=== PATIENT | female | born 1935 | race Caucasian/White ===

== ENCOUNTER 2019-05-31 00:59 | Inpatient (IN) | payer MEDICARE, OTHER ==
[2019-05-31] VITALS (9 sets, daily range): BP systolic 123–169; BP diastolic 58–78
[~2019-05-31] VITALS: Ht 152.4 cm; Wt 96.2 kg
[~2019-05-31 00:59] MED LIST: ALBU8.5H4 IH; FLUT1DIS3 IH; GLYB5TAB7 PO; IPRA0.2S18 IH; WARF1TAB86 PO
--- NOTE | 2019-05-31 01:05 | NUR ---
PT KIA FROM HOME S/P GLF. PT STATES HER LEGS FELT WEAK AND SHE FELL. L FOREHEAD REDNESS NOTED. PT AOX3. NAD NOTED. PT C/O SOB. DENIES PAIN AT THIS TIME. PT ON MONITOR IN BED 12 WITH FAMILY AT BEDSIDE. WILL CONTINUE TO MONITOR.
--- NOTE | 2019-05-31 01:17 | NUR ---
PHLEB AT BEDSIDE FOR BLOOD DRAW
--- NOTE | 2019-05-31 01:18 | NUR ---
TECH AT BEDSIDE FOR EKG
[2019-05-31 01:43] LABS: BASOPHILS # (AUTO) 0.1 /CMM (0.0-0.2); BASOPHILS % (AUTO) 0.7 % (0.0-2.0); EOSINOPHILS % (AUTO) 5.3 % (0.0-6.0); HEMATOCRIT 24 % (33-45); HEMOGLOBIN 7.6 g/dL (11.5-14.8); LYMPHOCYTES # (AUTO) 1.4 /CMM (0.8-4.8); LYMPHOCYTES % (AUTO) 17.6 % (20.0-44.0); MEAN CORPUSCULAR HGB CONC 32 g/dl (31.0-36.0); MEAN CORPUSCULAR VOLUME 75 fL (82-100); MONOCYTES # (AUTO) 0.6 /CMM (0.1-1.30); NEUTROPHILS # (AUTO) 5.7 /CMM (1.8-8.9); NEUTROPHILS % (AUTO) 69.4 % (43.0-81.0); PLATELET COUNT (AUTO) 440 /CMM (150-450); RED BLOOD CELL COUNT(AUTO) 3.15 MIL/uL (4.0-5.2); WHITE BLOOD COUNT (AUTO) 8.2 K/uL (4.3-11.0)
[2019-05-31 01:44] LABS: CARBON DIOXIDE 28 mmol/L (21-32); CHLORIDE 103 mmol/L (98-107); CREATININE 1.7 mg/dL (0.6-1.3); GLUCOSE 191 mg/dL (74-106); POTASSIUM 4.2 mmol/L (3.5-5.1); SODIUM SERUM 137 mmol/L (136-145); UREA NITROGEN, BLOOD 31 mg/dL (7-18)
--- NOTE | 2019-05-31 01:46 | NUR ---
PT TAKEN TO RADIOLOGY VIA [facility]
--- NOTE | 2019-05-31 02:57 | NUR ---
PT RESTING IN BED WITH FAMILY AT BEDSIDE. PT DENIES PAIN AT THIS TIME. WILL CONTINUE TO MONITOR.
--- NOTE | 2019-05-31 03:06 | NUR ---
BED 309-2
[2019-05-31] MEDS ORDERED: ALBUTEROL FS 2.5 MG/0.5 ML VIAL.NEB ONE (03:07)
--- NOTE | 2019-05-31 03:07 | NUR ---
RT AT BEDSIDE FOR BREATHING TREATMENT
[2019-05-31] MEDS ORDERED: ALBUTEROL FS 2.5 MG/0.5 ML VIAL.NEB NEB ONE (03:30)
--- NOTE | 2019-05-31 03:39 | NUR ---
REPORT GIVEN TO YANIV GLORIA FOR PENNIE
--- NOTE | 2019-05-31 03:40 | NUR ---
ADMISSION NOTES: RECEIVED REPORT FROM HOLDEN PURVIS. PT BROUGHT TO THE UNIT VIA GURNEY. MET WITH PT'S DAUGHTER AT BED SIDE. PT IS A/O X3 ON 1L OXYGEN FOR COMFORT. PT DENIES ANY PAIN OR DISCOMFORT AT THIS TIME. PLEASANT LADY, BURKINAN SPEAKING ONLY, DAUGHTER TO STAY AT BED SIDE HELPED WITH TRANSLATION. PT S/P TRIP AND FALL AT HOME, SKIN ASSESSMENT PERFORMED, PLEASE SEE SKIN LOG. BED BATH PROVIDED TO PT AT THIS TIME. LEXUS WELCHANDA COMPLETED INVENTORY OF BELONGINGS. PER DAUGHTER, HER MOTHER ISN'T WEARING DENTURES AT THE MOMENT THEY FORGET IT AT HOME. SHE ALSO ADDED THAT PT TAKING LASIX 40MG DAILY AT HOME. PT BLE NOTED TO BE SWELLING, ELEVATED ON PILLOWS. PT AND FAMILY WANTS FULL CODE. ORIENTED PT TO USE OF CALL LIGHT AND HOURLY ROUNDING. SAFETY PRECAUTIONS FOR FALL INITIATED, CALL LIGHT IN REACH, PT'S DAUGHTER WILL STAY WITH THE PT TODAY. ON TELE MONITORING SINUS RHYTHM HR 64. WILL CONTINUE MONITORING PT.
--- NOTE | 2019-05-31 04:15 | NUR ---
RN NOTES: NOTIFIED MD UX INTERACTION DESIGNER REGARDING ADMISSION ORDERS
[2019-05-31] MEDS ORDERED: FURO-144 PO (04:23)
--- NOTE | 2019-05-31 04:59 | NUR ---
RN NOTES: PER PT'S DAUGHTER, GADIEL, SHE FORGOT THE NAME OF THE INSULIN, UNSURE IF ITS JANUVIA OR TRADJENTA, STATED SHE WILL BRING IT IN AM.
--- NOTE | 2019-05-31 05:00 | NUR ---
RN NOTES: PLACED ANOTHER CALL TO STEREOPLOTTER OPERATOR MD, FOR ADMITTING ORDERS, AWAITING CALL BACK
--- NOTE | 2019-05-31 05:53 | NUR ---
RN NOTES: RECEIVED CALL BACK FROM DR MCCOY, INFORMED ABOUT PT NEEDS ADMITTING ORDERS, INFORMED PT ON TELE 315-1, INFORMED ABOUT PT'S NAME, NOTIFIED OF VS AND ALL HOME MEDS PLACED IN COMPUTER, INFORMED ABOUT INSULIN BUT PT'S DAUGHTER UNSURE OF NAME, BUT WILL BRING TODAY THE SAID MEDICATION, INFORMED ACCORDING TO PT'S DAUGHTER, THERE'S NO SPECIFIC UNIT OF LONG ACTING INSULIN THAT SHE GAVE HER MOTHER, SHE CLAIMED IT DEPENDS WHETHER THE BLOOD SUGAR IS HIGH, LOW OR NORMAL.
--- NOTE | 2019-05-31 05:54 | NUR ---
RN NOTES: PER MD HE WILL PUT IN ORDERS
--- NOTE | 2019-05-31 06:53 | NUR ---
RN NOTES: CONTACTED MD METALLIC YARN SLITTING MACHINE OPERATOR, REGARDING ADMITTING ORDERS, AND PT NEEDING BREATHING TREATMENT, PER MD T/O VENTOLIN 2.5/0.5 NEB Q6HRS PRN FOR SOB/ASTHMA. ORDER READ BACK, VERIFIED, CONTACTED RT SPOKED WITH MABEL, INFORMED ABOUT NEW ORDER, STATED THEY ARE RECEIVING REPORT RIGHT NOW./CHANGE OF SHIFT.
[2019-05-31] MEDS ORDERED: ONDANSETRON HCL/PF 4 MG/2 ML VIAL IVP PRN (07:00)
[2019-05-31] MEDS ORDERED: DEXTROSE 50%-WATER 50 ML DISP.SYRIN IV PRN (07:00)
[2019-05-31] MEDS ORDERED: HYDROCODONE/APAP 5/325MG 1 EACH TABLET PO PRN (07:00)
[2019-05-31] MEDS ORDERED: ALBUTEROL SULFATE INH 18 GM HFA.AER.AD IH SCH (07:00)
[2019-05-31] MEDS ORDERED: MAG HYDROX/AL HYDROX/SIMETH 30 ML UDC PO PRN (07:00)
[2019-05-31] MEDS ORDERED: Z GUARD REMEDY 2 OZ OINT TP PRN (07:00)
[2019-05-31] MEDS ORDERED: ZOLPIDEM TARTRATE 5 MG TABLET PO PRN (07:00)
[2019-05-31] MEDS ORDERED: MAGNESIUM HYDROXIDE 30 ML UDC PO PRN (07:00)
--- NOTE | 2019-05-31 07:37 | NUR ---
RN NOTES: RT IN THE UNIT TO GIVE BREATHING TREATMENT. IV ACCESS REMAINS PATENT AND FLUSHING WELL, ON HL. VS REMAINS STABLE, REMAINS ON SINUS RHYTHM HR 65. SAFETY PRECAUTIONS FOR FALL REMAINS ENGAGED, CALL LIGHT IN REACH, WILL ENDORSE TO DAY RN FOR PENNIE.
[2019-05-31] MEDS: ALBUTEROL FS 2.5 MG/0.5 ML VIAL.NEB NEB PRN (07:54)
[2019-05-31] MEDS: IPRATROPIUM NEB FS 0.5 MG/2.5 ML AMPUL.NEB IH PRN (07:54)
[2019-05-31] MEDS: BLOOD SUGAR DIAGNOSTIC 1 EACH STRIP IN SCH ×4 (07:56→21:01)
--- NOTE | 2019-05-31 08:01 | NUR ---
RN OPENING NOTES PT AWAKE AND SITTING IN CHAIR AT SIDE OF BED. DAUGHTER GADIEL AT BEDSIDE. NO COMPLAINTS OF PAIN, OR DISTRESS AT THIS TIME. PT TELE MONITORED NSR. PT ON 2L NASAL CANNULA SATING WELL. PT HAS A LEFT AC #20 INTACT AND PATENT. SAFETY PRECAUTIONS IN PLACE, BED IN LOWEST LOCKED POSITION, X2 SIDE RAILS UP AND CALL LIGHT WITHIN REACH. WILL CONTINUE TO MONITOR.
[2019-05-31] MEDS: INSULIN REGULAR, HUMAN 100 UNIT/ML 3 ML VIAL SQ PRN ×3 (08:43→21:03)
[2019-05-31] MEDS: FLUTICASONE/VILANTEROL 1 EACH BLST.W.DEV IH SCH (08:44)
[2019-05-31] MEDS: glyBURIDE 5 MG TABLET PO SCH (08:44)
[2019-05-31 10:56] LABS: IRON, SERUM 18 ug/dl (50-175); TOTAL IRON BINDING CAPACITY 284 ug/dl (250-450)
[2019-05-31] MEDS: IV NS 0.9% 1,000 ML IV PRN (15:18)
--- NOTE | 2019-05-31 18:03 | NUR ---
RN CLOSING NOTES PT AWAKE AND SITTING IN CHAIR AT SIDE OF BED. FAMILY AT BEDSIDE. NO COMPLAINTS OF PAIN, OR DISTRESS AT THIS TIME. PT ON 2L NASAL CANNULA FOR COMFORT, SATING WELL. PT HAS A LEFT HAND #24 INTACT AND PATENT AND RUNNING NS @75ML/HR. SAFETY PRECAUTIONS IN PLACE, BED IN LOWEST LOCKED POSITION, X2 SIDE RAILS UP AND CALL LIGHT WITHIN REACH. WILL ENDORSE TO CUSTOMER SERVICE SECURITY OFFICER NURSE FOR CONTINUITY OF CARE.
--- NOTE | 2019-05-31 19:30 | NUR ---
RN INITIAL NOTES: RECEIVED REPORT FROM YANIV MADSEN. PT SITTING ON A CHAIR, DAUGHTER AT BED SIDE. PT A/O X3 ON 1L OXYGEN FOR COMFORT. DENIES ANY PAIN OR DISCOMFORT AT THIS TIME. IV ACCESS PATENT AND FLUSHING WELL, INFUSING WITH NS AT 75ML/HR. DISCUSSED GRAF OF CARE. SAFETY PRECAUTIONS FOR FALL INITIATED, CALL LIGHT IN REACH, WILL CONTINUE MONITORING PT.
--- NOTE | 2019-05-31 19:50 | NUR ---
RN NOTES: CHRISTIANE SEN MET WITH PT AND DAUGHTER, DISCUSSED PLAN OF CARE
--- NOTE | 2019-05-31 20:03 | NUR ---
RN NOTES: PER CALL CENTER ASSISTANT CHRISTIANE TO START PT ON CARAFATE 1G TID TO START TONIGHT
--- NOTE | 2019-05-31 20:10 | NUR ---
RN NOTES: ORDER FOR PROTONIX FAXED TO RN INTERCELL CONNECTOR PLACER ANA
[2019-05-31] MEDS: SUCRALFATE 1 G TABLET PO SCH (20:39)
--- NOTE | 2019-05-31 21:03 | NUR ---
ACCU CHECK 199: BLOOD SUGAR 199, 3UNITS OF INSULIN GIVEN PER SLIDING SCALE
--- NOTE | 2019-05-31 21:50 | NUR ---
rn notes: followed up with rn sup regarding medication, protonix, per rn sup she still checking and will bring meds in a few.
[2019-05-31] MEDS ORDERED: PANTOPRAZOLE 40 MG VIAL ONE (22:07)
[2019-05-31] MEDS: PANTOPRAZOLE 40 MG VIAL IV SCH (22:18)
--- NOTE | 2019-05-31 22:21 | NUR ---
late admin of pprotonix iv: david duff just delivered the medication, protonix iv reconstituted with 10ml of 0.9% sodium chloride, and will admin ivp over 2mins
--- NOTE | 2019-05-31 22:40 | NUR ---
rn notes: paged insulation inspector md regarding pt's orthostatic bp, awaiting call back
--- NOTE | 2019-05-31 22:42 | NUR ---
rn notes: received call back from dr marshall, relayed about result of orthostatic bp supine 169/59 hr 69, sitting 167/72 hr 71, standing 160/67 hr 78, pt denies any pain or discomfort, denies any head ache or dizziness, asymptomatic. no new orders received from md. will continue to monitor pt.
[2019-06-01] VITALS: BP 155/68
[2019-06-01 00:15] VITALS: BP 156/59
--- NOTE | 2019-06-01 06:05 | NUR ---
rn notes: draw blood from [facility] midline, however too little for the ptt, accdg to men's leather dress belt maker they need at least 2-4ml. one we viridiana only 2ml, per men's leather dress belt maker they will still try to run test for the aptt. Addendum: 06/01/19 at 0644 by KYLAH GONZALEZ RN disregard above documentation, wrong entry
[2019-06-01] MEDS: BLOOD SUGAR DIAGNOSTIC 1 EACH STRIP IN SCH ×4 (06:34→21:26)
--- NOTE | 2019-06-01 06:34 | NUR ---
accu check 94: blood sugar 94, no insulin coverage given per sliding scale.
--- NOTE | 2019-06-01 06:45 | NUR ---
rn closing notes: pt in bed, remains with 1L oxygen for comfort. denies any pain or discomfort at this time. iv access remains patent and flushing well, infusing with ivf as ordered. instructed pt and daughter we need to collect stool for ob. understand and agree. vs remains stable, needs attended. safety precautions for fall remains engaged, call light in reach, will endorse to day rn for dilcia.
[2019-06-01 07:17] LABS: BASOPHILS % (AUTO) 0.6 % (0.0-2.0); EOSINOPHILS % (AUTO) 4.6 % (0.0-6.0); HEMATOCRIT 25 % (33-45); HEMOGLOBIN 7.8 g/dL (11.5-14.8); LYMPHOCYTES # (AUTO) 1.3 /CMM (0.8-4.8); LYMPHOCYTES % (AUTO) 18.3 % (20.0-44.0); MEAN CORPUSCULAR HGB CONC 31 g/dl (31.0-36.0); MEAN CORPUSCULAR VOLUME 75 fL (82-100); MONOCYTES # (AUTO) 0.6 /CMM (0.1-1.30); MONOCYTES % (AUTO) 8.1 % (2.0-12.0); NEUTROPHILS # (AUTO) 4.8 /CMM (1.8-8.9); NEUTROPHILS % (AUTO) 68.4 % (43.0-81.0); PLATELET COUNT (AUTO) 428 /CMM (150-450); RED BLOOD CELL COUNT(AUTO) 3.33 MIL/uL (4.0-5.2); WHITE BLOOD COUNT (AUTO) 7.1 K/uL (4.3-11.0)
--- NOTE | 2019-06-01 07:30 | NUR ---
RN OPENING NOTES PT AWAKE AND RESTING IN BED. DAUGHTER AT BEDSIDE. NO APPARENT S/S OF PAIN, DISTRESS OR SOB AT THIS TIME. PT ON 1L 02 FOR COMFORT. PT HAS LEFT HAND #24 IV INTACT AND RUNNING NS @75ML/HR. SAFETY PRECAUTIONS IN PLACE, BED IN LOWEST LOCKED POSITION, X2 SIDE RAILS UP AND CALL LIGHT WITHIN REACH. WILL CONTINUE TO MONITOR.
[2019-06-01 07:39] LABS: CALCIUM, SERUM 9.1 mg/dL (8.5-10.1); CARBON DIOXIDE 24 mmol/L (21-32); CHLORIDE 105 mmol/L (98-107); CREATININE 1.5 mg/dL (0.6-1.3); GLUCOSE 95 mg/dL (74-106); PHOSPHORUS 3.9 mg/dL (2.5-4.9); SODIUM SERUM 139 mmol/L (136-145); UREA NITROGEN, BLOOD 26 mg/dL (7-18)
[2019-06-01 07:44] LABS: CHOLESTEROL 150 mg/dL (<200); HDL CHOLESTEROL 44 mg/dL (40-60); LDL 82 mg/dL (0-99); THYROID STIMULATING HORMONE 1.661 uIU/mL (0.358-3.74); TRIGLYCERIDES 149 mg/dL (30-150)
[2019-06-01] MEDS ORDERED: METO25TA6 PO (07:51)
--- NOTE | 2019-06-01 07:51 | NUR ---
RN NOTES PATIENT'S DAUGHTER STATED THAT SHE TAKES BLOOD PRESSURE MEDICATION AT HOME. METOPROLOL 25MG TWICE AT DAY. WILL INPUT INTO PATIENT MED RECON AND INFORM HOSPITALIST.
[2019-06-01 08:00] VITALS: BP 162/65
--- NOTE | 2019-06-01 08:16 | NUR ---
RN NOTES PT LEFT UNIT FOR CTCA ACCOMPANIED BY LEXUS NOGUEIRA. Addendum: 06/01/19 at 1453 by TENA ALLEN RN wrong patient.
[2019-06-01] MEDS: FLUTICASONE/VILANTEROL 1 EACH BLST.W.DEV IH SCH (08:56)
[2019-06-01] MEDS: glyBURIDE 5 MG TABLET PO SCH (08:56)
[2019-06-01] MEDS: SUCRALFATE 1 G TABLET PO SCH ×3 (08:56→16:44)
[2019-06-01] MEDS: IV NS 0.9% 1,000 ML IV PRN (12:05)
[2019-06-01] MEDS: INSULIN REGULAR, HUMAN 100 UNIT/ML 3 ML VIAL SQ PRN ×3 (12:06→21:41)
[2019-06-01] MEDS ORDERED: hydrALAZINE HCL 25 MG TABLET PO PRN (14:00)
[2019-06-01] MEDS: AMLODIPINE BESYLATE 5 MG TABLET PO SCH (14:46)
[2019-06-01] MEDS: SOD FERRIC GLUC 125 MG in IV NS 0.9% 100 ML IV SCH (14:55)
[2019-06-01 16:00] VITALS: BP 141/58
--- NOTE | 2019-06-01 18:46 | NUR ---
RN CLOSING NOTES PT AWAKE AND RESTING IN CHAIR AT SIDE OF BED. DAUGHTER AT BEDSIDE. NO APPARENT S/S OF PAIN, DISTRESS OR SOB DURING SHIFT. PT HAS RIGHT WRIST #22 IV INTACT AND PATENT. SAFETY PRECAUTIONS IN PLACE, BED IN LOWEST LOCKED POSITION, X2 SIDE RAILS UP AND CALL LIGHT WITHIN REACH. WILL ENDORSE TO DRUM TESTER NURSE FOR CONTINUITY OF CARE.
--- NOTE | 2019-06-01 19:30 | NUR ---
MS/RN OPENING NOTES PT RECEIVED SITTING IN THE CHAIR WITH DAUGHTER AT BEDSIDE. PT IS OMANI SPEAKING, AAOX3. ON ROOM AIR, BREATHING EVEN AND UNLABORED. DENIES SOB AND PAIN AT THIS TIME. IV TO LFA PATENT AND INTACT. CHRISTIANE HODGE AT BEDSIDE TO EVALUATE THE PT. NO NEEDS EXPRESSED AT THIS TIME. PT AND FAMILY AWARE OF CT ABD/PELVIS WO CONTRAST AND NEED TO COLLECT STOOL SAMPLE. BED IN LOW/LOCKED POSITION WITH CALL LIGHT IN REACH. SIDE RAILS UPX2. WILL CONTINUE TO MONITOR
[2019-06-01 20:00] VITALS: BP_SYST 138; BP_SYST 139; BP_SYST 144; BP_DIAS 51; BP_DIAS 60; BP_DIAS 61
[2019-06-01] MEDS: METOPROLOL TARTRATE 25 MG TABLET PO SCH (21:26)
[2019-06-01] MEDS: PANTOPRAZOLE 40 MG VIAL IV SCH (21:26)
[2019-06-02] MEDS: ALBUTEROL FS 2.5 MG/0.5 ML VIAL.NEB NEB PRN ×2 (03:36→21:29)
[2019-06-02] MEDS: BLOOD SUGAR DIAGNOSTIC 1 EACH STRIP IN SCH ×4 (06:44→21:36)
[2019-06-02] MEDS: INSULIN REGULAR, HUMAN 100 UNIT/ML 3 ML VIAL SQ PRN ×3 (06:50→21:46)
--- NOTE | 2019-06-02 06:53 | NUR ---
MS/RN NOTES BGL 161, ADMINISTERED INSULIN PER SLIDING SCALE. CALLED RADIOLOGY FOR ESTIMATED BOOM TENDER TIME FOR CT ABD/PELVIS WO CONTRAST. ETA [phone] PT AND FAMILY MADE AWARE.
[2019-06-02 06:56] LABS: BASOPHILS % (AUTO) 0.5 % (0.0-2.0); EOSINOPHILS % (AUTO) 2.3 % (0.0-6.0); HEMATOCRIT 24 % (33-45); HEMOGLOBIN 7.6 g/dL (11.5-14.8); LYMPHOCYTES # (AUTO) 1.3 /CMM (0.8-4.8); LYMPHOCYTES % (AUTO) 14.9 % (20.0-44.0); MEAN CORPUSCULAR HGB CONC 32 g/dl (31.0-36.0); MEAN CORPUSCULAR VOLUME 75 fL (82-100); MONOCYTES # (AUTO) 0.8 /CMM (0.1-1.30); MONOCYTES % (AUTO) 8.7 % (2.0-12.0); NEUTROPHILS # (AUTO) 6.4 /CMM (1.8-8.9); NEUTROPHILS % (AUTO) 73.6 % (43.0-81.0); PLATELET COUNT (AUTO) 426 /CMM (150-450); RED BLOOD CELL COUNT(AUTO) 3.18 MIL/uL (4.0-5.2); WHITE BLOOD COUNT (AUTO) 8.7 K/uL (4.3-11.0)
[2019-06-02 07:08] LABS: ALANINE AMINOTRANSFERASE 13 U/L (12-78); ALBUMIN 2.8 g/dL (3.4-5.0); ALKALINE PHOSPHATASE 57 U/L (46-116); ASPARTATE AMINOTRANSFERASE 12 U/L (15-37); BILIRUBIN,TOTAL 0.2 mg/dL (0.2-1.0); CALCIUM, SERUM 8.6 mg/dL (8.5-10.1); CARBON DIOXIDE 23 mmol/L (21-32); CHLORIDE 102 mmol/L (98-107); CREATININE 1.7 mg/dL (0.6-1.3); GLUCOSE 157 mg/dL (74-106); MAGNESIUM 1.9 mg/dL (1.8-2.4); POTASSIUM 4.3 mmol/L (3.5-5.1); SODIUM SERUM 137 mmol/L (136-145); TOTAL PROTEIN, SERUM 7.2 g/dL (6.4-8.2); UREA NITROGEN, BLOOD 24 mg/dL (7-18)
[2019-06-02 07:19] LABS: CREATINE KINASE, TOTAL 175 U/L (26-192)
--- NOTE | 2019-06-02 07:30 | NUR ---
MS/RN CLOSING NOTES PT AWAKE, DAUGHTER REMAINS AT BEDSIDE. SITTING IN THE CHAIR. ON 2LPM O2 VIA NC FOR COMFORT, NO SOB OR PAIN NOTED. IN NO ACUTE RESPIRATORY DISTRESS. IV TO LEFT WRIST PATENT AND INTACT. NO SIGNIFICANT CHANGES OVERNIGHT. ALL NEEDS MET AND ANTICIPATED. STILL NEED URINE AND STOOL SPECIMEN SAMPLE. AWAITING RADIOLOGY CURTAIN ROLLER ASSEMBLER FOR CT ABD/PELVIS WO CONTRAST, ETA [phone]. BED IN LOW/LOCKED POSITION WITH CALL LIGHT IN REACH. SIDE RAILS UPX2. ENDORSED TO DAY SHIFT RN PENNIE.
[2019-06-02 08:00] VITALS: BP 112/72
--- NOTE | 2019-06-02 08:10 | NUR ---
RN OPENING NOTES PT AWAKE AND RESTING IN BED. DAUGHTER AT BEDSIDE. NO COMPLAINTS OF PAIN, DISTRESS OR SOB AT THIS TIME. PT HAS RIGHT WRIST #20 IV INTACT AND PATENT. SAFETY PRECAUTIONS IN PLACE, BED IN LOWEST LOCKED POSITION, X2 SIDE RAILS UP AND CALL LIGHT WITHIN REACH. WILL CONTINUE TO MONITOR.
[2019-06-02] MEDS: SUCRALFATE 1 G TABLET PO SCH ×3 (08:42→16:43)
[2019-06-02] MEDS: FLUTICASONE/VILANTEROL 1 EACH BLST.W.DEV IH SCH (08:43)
[2019-06-02] MEDS: METOPROLOL TARTRATE 25 MG TABLET PO SCH ×2 (08:43→21:37)
[2019-06-02] MEDS: AMLODIPINE BESYLATE 5 MG TABLET PO SCH (08:43)
[2019-06-02] MEDS: glyBURIDE 5 MG TABLET PO SCH (08:43)
[2019-06-02] MEDS ORDERED: PEG 3350/NA SULF,BICARB,CL/KCL 4,000 ML BOTTLE PO ONE (10:00)
--- NOTE | 2019-06-02 10:35 | NUR ---
WOUND CARE CONSULT: PT PRESENTS WITH INCONTINENCE AND RASHES/REDNESS TO SKIN FOLDS, PRESENT ON ADMISSION. RECOMMENDATIONS MADE FOR SKIN CARE AND PROTECTION. DISCUSSED WITH NURSING STAFF. WILL SEE PRN. PELLETIER IN AGREEMENT WITH PLAN OF CARE. Addendum: 06/02/19 at 1036 by LUKASZ GARCIA WNDNU Amended: Links added.
--- NOTE | 2019-06-02 11:14 | NUR ---
rn notes per dr whittington, pt does not need to be NPO at this time. Continue to give golytely as ordered.
[2019-06-02 12:19] LABS: CREATININE, URINE 60.6 MG/DL (30.0-125.0); URINE TOTAL PROTEIN 30.4 mg/dL (0-11.9)
[2019-06-02 12:23] LABS: APPEARANCE,URINE CLOUDY (CLEAR); BILIRUBIN,URINE NEGATIVE (NEGATIVE); BLOOD, URINE NEGATIVE Ery/uL (NEGATIVE); KETONES,URINE NEGATIVE (NEGATIVE); LEUKOCYTE ESTERASE ,URINE 1+ (NEGATIVE); NITRITE, URINE NEGATIVE (NEGATIVE); PROTEIN,URINE TRACE mg/dl (NEGATIVE); UGLUCOSE NEGATIVE (NEGATIVE); UROBILINOGEN,URINE 0.2 EU/dL (0.2)
[2019-06-02 12:43] LABS: COLOR,URINE STRAW (YELLOW)
[2019-06-02 12:54] LABS: BACTERIA,URINE Many /HPF (None Seen); RBC,URINE 0-2 /HPF (0-2); WBC,URINE 21-50 /HPF (0-3)
[2019-06-02 12:55] LABS: SQUAMOUS EPITHELIAL CELL,UR Few /HPF (None Seen)
[2019-06-02] MEDS: SOD FERRIC GLUC 125 MG in IV NS 0.9% 100 ML IV SCH (14:04)
[2019-06-02] MEDS: ACETAMINOPHEN 325 MG TABLET PO PRN (14:15)
[2019-06-02 15:25] LABS: EOSINOPHIL,URINE None Seen
[2019-06-02 16:00] VITALS: BP 130/59
[2019-06-02] MEDS: CLOTRIMAZOLE 1% 15 GM TUBE TP SCH (16:43)
--- NOTE | 2019-06-02 19:30 | NUR ---
MS/RN OPENING NOTES PT RECEIVED AWAKE, DAUGHTER AT BEDSIDE. RESTING COMFORTABLE IN BED. ON ROOM AIR, BREATHING EVEN AND UNLABORED. DENIES SOB OR PAIN AT THIS TIME. LEFT WRIST PATENT AND INTACT. ENCOURAGED PT AND DAUGHTER TO DRINK GOLYTELY IN PREP FOR POSSIBLE COLONOSCOPY TOMORROW. AWAITING CALL BACK FROM DR. HARGROVE WITH PROCEDURE TIME. NO NEEDS EXPRESSED AT THIS TIME. BED IN LOW/LOCKED POSITION WITH CALL LIGHT IN REACH. SIDE RAILS UPX3. WILL CONTINUE TO MONITOR
--- NOTE | 2019-06-02 19:36 | NUR ---
RN CLOSING NOTES PER HYDROELECTRIC PRODUCTION MANAGER AYESHA, HAVE PATIENT ON CLEAR LIQUIDS IN PREPARATION FOR POSSIBLE COLONOSCOPY TOMORROW. INFORMED RESIDENCE HALL DIRECTOR NURSE TO FOLLOW UP WITH DR HARGROVE. PT IS CONTINUING TO DRINK GOLYTELY. FAMILY AT BEDSIDE. FAMILY AWARE OF PLAN OF CARE. ENDORSE TO RESIDENCE HALL DIRECTOR NURSE FOR CONTINUITY OF CARE.
[2019-06-02 20:00] VITALS: BP 144/71
--- NOTE | 2019-06-02 20:00 | NUR ---
MS/RN NOTES BSC PROVIDED. ENCOURAGED PT TO DRINK 2 CUPS OF GOLYTELY. STILL NO BM.
[2019-06-02 20:56] VITALS: BP 144/71
[2019-06-02] MEDS: IPRATROPIUM NEB FS 0.5 MG/2.5 ML AMPUL.NEB IH PRN (21:29)
--- NOTE | 2019-06-02 21:36 | NUR ---
MS/RN NOTES PT ENCOURAGED TO DRINK GOLYTELY. DAUGHTER VERBALIZES UNDERSTANDING OF IMPORTANCE OF BOWEL PREP AND TO FREQUENTLY ENCOURAGE PT TO DRINK WELL. PT ABLE TO DRINK 2 CUPS AT THIS TIME.
[2019-06-03 06:52] LABS: BASOPHILS % (AUTO) 0.4 % (0.0-2.0); EOSINOPHILS % (AUTO) 1.6 % (0.0-6.0); HEMATOCRIT 23 % (33-45); HEMOGLOBIN 7.3 g/dL (11.5-14.8); LYMPHOCYTES # (AUTO) 1.2 /CMM (0.8-4.8); LYMPHOCYTES % (AUTO) 13.9 % (20.0-44.0); MEAN CORPUSCULAR HGB CONC 32 g/dl (31.0-36.0); MEAN CORPUSCULAR VOLUME 75 fL (82-100); MONOCYTES # (AUTO) 0.7 /CMM (0.1-1.30); MONOCYTES % (AUTO) 8.2 % (2.0-12.0); NEUTROPHILS # (AUTO) 6.3 /CMM (1.8-8.9); NEUTROPHILS % (AUTO) 75.9 % (43.0-81.0); PLATELET COUNT (AUTO) 401 /CMM (150-450); RED BLOOD CELL COUNT(AUTO) 3.12 MIL/uL (4.0-5.2); WHITE BLOOD COUNT (AUTO) 8.3 K/uL (4.3-11.0)
[2019-06-03] MEDS: BLOOD SUGAR DIAGNOSTIC 1 EACH STRIP IN SCH ×2 (06:53→12:15)
[2019-06-03] MEDS: INSULIN REGULAR, HUMAN 100 UNIT/ML 3 ML VIAL SQ PRN (06:59)
[2019-06-03] MEDS ORDERED: PANTOPRAZOLE 40 MG TABLET.DR PO SCH (07:30)
--- NOTE | 2019-06-03 07:30 | NUR ---
RN MS NOTES PT IN BED, AWAKE, ALERT AND ORIENTED, NO COMPLAINT OF PAIN, RESPIRATIONS NORMAL, DAUGHTER GADIEL AT BEDSIDE, CALL LIGHT WITHIN REACH, ASSISTED WITH NEEDS.
[2019-06-03 08:00] VITALS: BP 163/66
[2019-06-03] MEDS: SUCRALFATE 1 G TABLET PO SCH ×2 (08:22→12:17)
[2019-06-03] MEDS: FLUTICASONE/VILANTEROL 1 EACH BLST.W.DEV IH SCH (08:22)
[2019-06-03] MEDS: AMLODIPINE BESYLATE 5 MG TABLET PO SCH (08:23)
[2019-06-03] MEDS: glyBURIDE 5 MG TABLET PO SCH (08:23)
[2019-06-03] MEDS: METOPROLOL TARTRATE 25 MG TABLET PO SCH (08:23)
[2019-06-03] MEDS ORDERED: hydrALAZINE HCL 50 MG TABLET PO PRN (08:30)
[2019-06-03] MEDS: CLOTRIMAZOLE 1% 15 GM TUBE TP SCH (08:38)
[2019-06-03] MEDS ORDERED: ISOSORBIDE MONONITRATE (30MG) 30 MG TAB.SR.24H PO SCH (09:00)
[2019-06-03 09:13] LABS: CALCIUM, SERUM 8.4 mg/dL (8.5-10.1); CARBON DIOXIDE 24 mmol/L (21-32); CHLORIDE 105 mmol/L (98-107); CREATININE 1.5 mg/dL (0.6-1.3); GLUCOSE 162 mg/dL (74-106); PHOSPHORUS 2.9 mg/dL (2.5-4.9); POTASSIUM 4.7 mmol/L (3.5-5.1); SODIUM SERUM 140 mmol/L (136-145); UREA NITROGEN, BLOOD 23 mg/dL (7-18)
--- NOTE | 2019-06-03 09:30 | NUR ---
RN MS NOTES PT SEEN BY DR. HARGROVE, PLAN OF CARE DISCUSSED WITH PT AND DAUGHTER, VERBALIZED UNDERSTANDING, DAUGHTER TO DECIDE REGARDING EGD/COLONOSCOPY.
[2019-06-03] MEDS: ACETAMINOPHEN 325 MG TABLET PO PRN (09:36)
[2019-06-03 12:39] VITALS: BP 117/52
[2019-06-03 13:06] LABS: *SPE A/G RATIO 0.8 (0.7-1.7); *SPE ALBUMIN 2.8 g/dL (2.9-4.4); *SPE ALPHA-1-GLOBULIN 0.3 g/dL (0.0-0.4); *SPE ALPHA-2-GLOBULIN 1.2 g/dL (0.4-1.0); *SPE BETA GLOBULIN 1.1 g/dL (0.7-1.3); *SPE GLOBULIN, TOTAL 3.4 g/dL (2.2-3.9); *SPE M-SPIKE Not Observed g/dL (Not Observed); *SPEGAMMA GLOBULIN 0.9 g/dL (0.4-1.8); PTH, INTACT 62 pg/mL (15-65)
--- NOTE | 2019-06-03 14:11 | NUR ---
RN MS NOTES PT AWAKE, ALERT AND ORIENTED, SITTING IN HER CHAIR, NO COMPLAINT OF PAIN OR ANY DISCOMFORT, RESPIRATIONS NORMAL, PT AND DAUGHTER GADIEL REFUSED TO PROCEED WITH EGD/COLONOSCOPY, DR. HARGROVE AND DR. MILLAN INFORMED, DISCHARGE ORDER GIVEN BY MD, DISCHARGE AND MEDICATION INSTRUCTIONS PROVIDED TO PT AND DAUGHTER, VERBALIZED UNDERSTANDING, BELONGINGS ACCOUNTED FOR, PT AND DAUGHTER REFUSED SKIN ASSESSMENT AND PHOTOS, ASSISTED TO HOSPITAL LOBBY VIA WHEELCHAIR, LEFT WITH DAUGHTER VIA PRIVATE CAR IN STABLE CONDITION.
== END 2019-06-03 14:05 | disposition home or self-care (01) | DRG 383 ==
LOC: ER 01:02 → TELE 03:17 → MED 03:46 → TELE 06:00 → MED 09:21
PROVIDERS: ADMIT Nurse Practitioner Acute Care; ATTEND Internal Medicine
DX: K27.9 Peptic ulcer, site unspecified, unspecified as acute or chronic, without hemorrhage or perforation (principal); N17.0 Acute kidney failure with tubular necrosis; Z68.41 Body mass index [BMI] 40.0-44.9, adult; R55 Syncope and collapse; K29.00 Acute gastritis without bleeding; E11.22 Type 2 diabetes mellitus with diabetic chronic kidney disease; I12.9 Hypertensive chronic kidney disease with stage 1 through stage 4 chronic kidney disease, or unspecified chronic kidney disease; N18.9 Chronic kidney disease, unspecified; E66.9 Obesity, unspecified; F03.90 Unspecified dementia, unspecified severity, without behavioral disturbance, psychotic disturbance, mood disturbance, and anxiety; J45.909 Unspecified asthma, uncomplicated; K21.9 Gastro-esophageal reflux disease without esophagitis; M19.90 Unspecified osteoarthritis, unspecified site; Z86.718 Personal history of other venous thrombosis and embolism; Z79.01 Long term (current) use of anticoagulants; Z79.84 Long term (current) use of oral hypoglycemic drugs; Z79.51 Long term (current) use of inhaled steroids; Y92.009 Unspecified place in unspecified non-institutional (private) residence as the place of occurrence of the external cause; W18.30XA Fall on same level, unspecified, initial encounter; I48.0 Paroxysmal atrial fibrillation; D50.9 Iron deficiency anemia, unspecified; Z79.899 Other long term (current) drug therapy; E11.21 Type 2 diabetes mellitus with diabetic nephropathy; E78.5 Hyperlipidemia, unspecified; I70.0 Atherosclerosis of aorta; K80.20 Calculus of gallbladder without cholecystitis without obstruction; N27.1 Small kidney, bilateral
CPT/HCPCS: 36415; 70450-TC; 71045-TC; 76770-TC; 80048-TC; 80053-TC; 80061-TC; 81000-TC; 82550-TC; 82570-TC; 82728-TC; 82962-TC; 83540-TC; 83735-TC; 83880; 83970; 84100-TC; 84155; 84155-TC; 84165; 84300-TC; 84443-TC; 85025-TC; 85730-TC; 86850-TC; 87081-TC; 87086-TC; 87186-TC; 93307-TC; 94799-TC; 97116-TC; 97530-TC; C9113; G0378; J1815; J2916; J7030

== ENCOUNTER 2021-06-18 14:16 | Inpatient (IN) | payer MEDICARE, OTHER ==
[~2021-06-18] VITALS: Ht 152.4 cm; Wt 104.3 kg
[~2021-06-18 14:16] MED LIST changes: +FURO-144 PO; +METO25TA6 PO
--- NOTE | 2021-06-18 14:20 | NUR ---
To ER bed 6, from home, c/o sob and fever, on oral antibiotic for UTI, nausea and vomiting, oriented to name and place, breathing even and non labored, family at bedside
[2021-06-18] MEDS ORDERED: ONDANSETRON HCL/PF 4 MG/2 ML VIAL ONE (14:23)
[2021-06-18] MEDS ORDERED: GLIM4TAB37 PO (14:24)
[2021-06-18] MEDS ORDERED: PRAV20TA4 PO (14:24)
[2021-06-18] MEDS ORDERED: POTA10TA PO (14:24)
[2021-06-18] MEDS ORDERED: ONDANSETRON HCL/PF 4 MG/2 ML VIAL IV ONE (14:30)
--- NOTE | 2021-06-18 14:37 | NUR ---
SALINE LOCK ESTABLISHED, BLOOD DRAWN AND SENT TO LAB
--- NOTE | 2021-06-18 14:53 | NUR ---
AUTOMATION TEST ENGINEER AT BEDSIDE
--- NOTE | 2021-06-18 15:02 | NUR ---
URINE COLLECTED AND SENT TO LAB
[2021-06-18 15:08] LABS: BASOPHILS % (AUTO) 0.3 % (0.0-2.0); EOSINOPHILS % (AUTO) 0.1 % (0.0-6.0); HEMATOCRIT 26 % (33-45); HEMOGLOBIN 8.2 g/dL (11.5-14.8); LYMPHOCYTES # (AUTO) 0.5 K/uL (0.8-4.8); LYMPHOCYTES % (AUTO) 4.1 % (20.0-44.0); MEAN CORPUSCULAR HGB CONC 32 g/dl (31.0-36.0); MEAN CORPUSCULAR VOLUME 80 fL (82-100); MONOCYTES # (AUTO) 0.4 K/uL (0.1-1.30); MONOCYTES % (AUTO) 3.6 % (2.0-12.0); NEUTROPHILS # (AUTO) 10.1 K/uL (1.8-8.9); NEUTROPHILS % (AUTO) 91.9 % (43.0-81.0); PLATELET COUNT (AUTO) 262 K/uL (150-450); RED BLOOD CELL COUNT(AUTO) 3.21 MIL/uL (4.0-5.2)
--- NOTE | 2021-06-18 15:12 | NUR ---
COVID SWAB DONE AND SENT TO LAB
[2021-06-18 15:26] LABS: CALCIUM, SERUM 8.5 mg/dL (8.5-10.1); CARBON DIOXIDE 23 mmol/L (21-32); CHLORIDE 96 mmol/L (98-107); CREATININE 2.5 mg/dL (0.6-1.3); GLUCOSE 268 mg/dL (74-106); POTASSIUM 5.6 mmol/L (3.5-5.1); SODIUM SERUM 129 mmol/L (136-145); UREA NITROGEN, BLOOD 38 mg/dL (7-18)
[2021-06-18] MEDS ORDERED: INSU200I4 SQ (15:27)
[2021-06-18] MEDS ORDERED: HYDR-4077 PO (15:27)
[2021-06-18] MEDS ORDERED: IPRATROPIUM NEB FS 0.5 MG/2.5 ML AMPUL.NEB NEB ONE (15:30)
[2021-06-18] MEDS ORDERED: ALBUTEROL FS 2.5 MG/3 ML VIAL.NEB NEB ONE (15:30)
[2021-06-18 15:32] LABS: ALANINE AMINOTRANSFERASE 23 U/L (12-78); ALBUMIN 2.9 g/dL (3.4-5.0); ALKALINE PHOSPHATASE 60 U/L (46-116); ASPARTATE AMINOTRANSFERASE 24 U/L (15-37); BILIRUBIN,DIRECT 0.1 mg/dL (0.0-0.2); BILIRUBIN,TOTAL 0.2 mg/dL (0.2-1.0); TOTAL PROTEIN, SERUM 7.4 g/dL (6.4-8.2)
[2021-06-18] MEDS ORDERED: ALBUTEROL FS 2.5 MG/3 ML VIAL.NEB ONE (15:39)
[2021-06-18] MEDS ORDERED: IPRATROPIUM NEB FS 0.5 MG/2.5 ML AMPUL.NEB ONE (15:39)
[2021-06-18] MEDS ORDERED: VANCOMYCIN 1 GM in IV D5W 250 ML IV ONE (16:00)
[2021-06-18] MEDS ORDERED: IV NS 0.9% 1,000 ML BAG IV ONE (16:00)
[2021-06-18] MEDS ORDERED: CEFEPIME 1 GM in IV D5W 50 ML IV ONE (16:00)
[2021-06-18 16:07] LABS: BILIRUBIN,URINE NEGATIVE (NEGATIVE); COLOR,URINE YELLOW (YELLOW); LEUKOCYTE ESTERASE ,URINE NEGATIVE (NEGATIVE); NITRITE, URINE POSITIVE (NEGATIVE); PROTEIN,URINE 30 mg/dl (NEGATIVE); UGLUCOSE NEGATIVE (NEGATIVE); UROBILINOGEN,URINE 0.2 EU/dL (0.2)
[2021-06-18 16:12] LABS: BACTERIA,URINE 4+ /HPF (None Seen); RBC,URINE 0-2 /HPF (0-2); SQUAMOUS EPITHELIAL CELL,UR Few /HPF (None Seen); WBC,URINE 0-2 /HPF (0-3)
[2021-06-18] MEDS ORDERED: DEXTROSE 50%-WATER 50 ML DISP.SYRIN IV PRN (16:30)
[2021-06-18] MEDS ORDERED: MAGNESIUM HYDROXIDE 30 ML UDC PO PRN (16:30)
[2021-06-18] MEDS ORDERED: ONDANSETRON HCL/PF 4 MG/2 ML VIAL IVP PRN (16:30)
[2021-06-18] MEDS ORDERED: TEMAZEPAM 15 MG CAPSULE PO PRN (16:30)
[2021-06-18] MEDS ORDERED: HYDROCODONE/APAP 5/325MG TABLET PO PRN (16:30)
[2021-06-18] MEDS ORDERED: Z GUARD REMEDY 2 OZ OINT TP PRN (16:30)
[2021-06-18] MEDS ORDERED: ACETAMINOPHEN 325 MG TABLET PO PRN (16:30)
[2021-06-18] MEDS ORDERED: MAG HYDROX/AL HYDROX/SIMETH 30 ML UDC PO PRN (16:30)
[2021-06-18] MEDS ORDERED: MORPHINE SULFATE INJ 2 MG/ML DISP.SYRIN IV PRN (16:30)
--- NOTE | 2021-06-18 17:33 | NUR ---
FAMILY AT BEDSIDE
--- NOTE | 2021-06-18 17:43 | NUR ---
ROOM 306-1
--- NOTE | 2021-06-18 18:37 | NUR ---
REPORT GIVEN TO NKECHI PURVIS FOR PENNIE
--- NOTE | 2021-06-18 18:50 | NUR ---
RN NOTES PATIENT TO ROOM 306-1 VIA [facility], ACCOMPANIED BY 2 ER NURSES. ATTACHED TO TELE MONITOR; SHEET CHANGED AND KEPT CLEAN AND DRY. ENDORSED TO TRAVEL ACCOMMODATION INSPECTOR RN FOR PENNIE.
[2021-06-18] MEDS: METOPROLOL TARTRATE 25 MG TABLET PO SCH (19:00)
--- NOTE | 2021-06-18 19:45 | NUR ---
TELE/RN ADMITTING NOTE RECEIVED PATIENT RESTING IN BED. PRIMARILY CZECH SPEAKING. ALERT AND ORIENTED X 2 WITH CONFUSION NOTED. FAMILY ON PHONE TO INTERPRET. PATIENT DENIES PAIN AT THIS TIME. CONTINUES ON ROOM AIR WITH NO S/SX OF RESPIRATORY DISTRESS NOTED. IV ACCESS TO RIGHT HAND #22G AND LEFT HAND #22G BOTH INTACT, PATENT AND SALINE LOCKED. SKIN CHECK PERFORMED ON ADMISSION WITH NO SKIN ISSUES NOTED. TELE MONITOR CURRENTLY READING SR 78. PATIENT ORIENTED TO ROOM, CALL LIGHT AND UNIT. CALL LIGHT WITHIN REACH. ASPIRATION, FALL AND SAFETY PRECAUTIONS MAINTAINED. WILL CONTINUE TO MONITOR.
[2021-06-18 20:00] VITALS: BP 110/46
[2021-06-18] MEDS ORDERED: VANCOMYCIN 500 MG in IV D5W 100ml IV ONE (20:00)
[2021-06-18] MEDS: hydrALAZINE HCL 50 MG TABLET PO SCH (21:00)
--- NOTE | 2021-06-18 21:00 | NUR ---
AIR INTERCEPT CONTROLLER NOTE LAB CALLED WITH LACTIC ACID RESULT OF 2.1. DOWNTRENDING FROM 2.8. VET ASSISTANT MD CARPENTER MADE AWARE WITH NO NEW ORDERS AT THIS TIME.
[2021-06-18] MEDS: PRAVASTATIN SODIUM 20 MG TABLET PO SCH (22:00)
--- NOTE | 2021-06-18 22:21 | NUR ---
TELE/RN NOTE PATIENT REFUSED BMP LAB DRAW AT THIS TIME. PER LAB WILL ATTEMPT IN AM.
[2021-06-18] MEDS: BLOOD SUGAR DIAGNOSTIC 1 EACH STRIP IN SCH (22:31)
[2021-06-18] MEDS: HEPARIN SODIUM, PORCINE 5000 UNITS/1 ML VIAL SQ SCH (22:34)
[2021-06-18] MEDS: IV NS 0.9% 1,000 ML IV PRN (22:39)
[2021-06-18] MEDS: INSULIN REGULAR, HUMAN 100 UNIT/ML 3 ML VIAL SQ PRN (23:03)
[2021-06-19] VITALS: BP 120/39
[2021-06-19 04:00] VITALS: BP 129/47
--- NOTE | 2021-06-19 05:28 | NUR ---
ASAF/RN NOTE GADIEL (DAUGHTER) [phone]
[2021-06-19 06:01] LABS: BASOPHILS % (AUTO) 0.6 % (0.0-2.0); EOSINOPHILS % (AUTO) 0.3 % (0.0-6.0); HEMATOCRIT 24 % (33-45); HEMOGLOBIN 7.6 g/dL (11.5-14.8); LYMPHOCYTES % (AUTO) 14.6 % (20.0-44.0); MEAN CORPUSCULAR HGB CONC 32 g/dl (31.0-36.0); MEAN CORPUSCULAR VOLUME 80 fL (82-100); MONOCYTES # (AUTO) 0.7 K/uL (0.1-1.30); MONOCYTES % (AUTO) 10.7 % (2.0-12.0); NEUTROPHILS % (AUTO) 73.8 % (43.0-81.0); PLATELET COUNT (AUTO) 177 K/uL (150-450); RED BLOOD CELL COUNT(AUTO) 2.94 MIL/uL (4.0-5.2); WHITE BLOOD COUNT (AUTO) 6.8 K/uL (4.3-11.0)
[2021-06-19] MEDS: IV NS 0.9% 1,000 ML IV PRN (06:12)
[2021-06-19 06:24] LABS: CALCIUM, SERUM 7.9 mg/dL (8.5-10.1); CARBON DIOXIDE 22 mmol/L (21-32); CHLORIDE 104 mmol/L (98-107); CREATININE 2.3 mg/dL (0.6-1.3); GLUCOSE 94 mg/dL (74-106); MAGNESIUM 2.2 mg/dL (1.8-2.4); PHOSPHORUS 3.7 mg/dL (2.5-4.9); SODIUM SERUM 135 mmol/L (136-145); UREA NITROGEN, BLOOD 36 mg/dL (7-18)
--- NOTE | 2021-06-19 06:35 | NUR ---
TELE/RN NOTE SPOKE WITH DAUGHTER, GADIEL, THIS MORNING TO CLARIFY CODE STATUS. PER GADIEL WOULD LIKE HER MOTHER TO BE FULL CODE AT THIS TIME. CODE STATUS ORDERED.
[2021-06-19 06:39] LABS: CHOLESTEROL 181 mg/dL (<200); HDL CHOLESTEROL 34 mg/dL (40-60); LDL 99 mg/dL (0-99); THYROID STIMULATING HORMONE 1.021 uIU/mL (0.358-3.74); TRIGLYCERIDES 245 mg/dL (30-150)
--- NOTE | 2021-06-19 06:40 | NUR ---
TELE/RN CLOSING NOTE PATIENT CURRENTLY RESTING IN BED. ALERT AND ORIENTED X 2. PRIMARILY PASHTO SPEAKING. CONTINUES ON O2 2L VIA NC WITH NO SS/X OF RESPIRATORY DISTRESS NOTED. IV ACCESS TO LEFT HAND #22G AND RIGHT HAND #22G INTACT AND PATENT. CONTINUES ON IVF NS @ 75ML/HR. CONTINUES ON IV ABX. WOUND CONSULT ORDERED THIS AM FOR OPEN AREA TO RIGHT BUTTOCK PRESENT ON ADMISSION. PATIENTS BLOOD GLUCOSE LEVEL THIS AM IS 56. PROVIDED SNACKS AND JUICE. WILL RECHECK BLOOD SUGAR. CALL LIGHT WITHIN REACH. ASPIRATION, FALL AND SAFETY PRECAUTIONS MAINTAINED. WILL ENDORSE PLAN OF CARE TO ONCOMING SHIFT.
[2021-06-19] MEDS: BLOOD SUGAR DIAGNOSTIC 1 EACH STRIP IN SCH ×4 (06:44→21:54)
--- NOTE | 2021-06-19 07:35 | NUR ---
TELE/RN OPENING NOTES RECEIVED PATIENT ON BED AWAKE ALERT AND ORIENTED X 1-2. PATIENT IS ON AND OFF OXYGEN PER ACADEMY EDUCATION DIRECTOR NURSE. PATIENT IS ON 2L OXYGEN VIA NASAL CANNULA AT THIS TIME. PATIENT IN NO APPARENT RESPIRATORY DISTRESS NOTED. NO COMPLAINED NOTED AT THIS TIME. TELE MONITOR READING SINUS KALYANI 48 BPM. WILL CONTINUE TO MONITOR.
[2021-06-19] MEDS: METOPROLOL TARTRATE 25 MG TABLET PO SCH ×2 (08:30→17:00)
[2021-06-19] MEDS: hydrALAZINE HCL 50 MG TABLET PO SCH ×4 (08:30→21:51)
[2021-06-19] MEDS: PANTOPRAZOLE 40 MG TABLET.DR PO SCH (08:31)
[2021-06-19] MEDS: HEPARIN SODIUM, PORCINE 5000 UNITS/1 ML VIAL SQ SCH ×2 (08:33→21:00)
--- NOTE | 2021-06-19 08:33 | NUR ---
RN NOTES HGB 7.6 HCT 24, HEPARIN 5000 UNITS SQ NOT ADMINISTERED. WILL CONTINUE TO MONITOR.
[2021-06-19] MEDS: CEFTRIAXONE 1 G in IV D5W 50 ML IV SCH (09:38)
--- NOTE | 2021-06-19 12:00 | NUR ---
RN NOTES WHEEZING AND DIFFICULTY BREATHING WAS NOTED BREATHING TREATMENT WAS GIVEN BY RT.
[2021-06-19] MEDS: ALBUTEROL FS 2.5 MG/0.5 ML VIAL.NEB NEB PRN (12:13)
[2021-06-19] MEDS: IPRATROPIUM NEB FS 0.5 MG/2.5 ML AMPUL.NEB IH PRN (12:13)
[2021-06-19 12:48] VITALS: BP 147/91
[2021-06-19 16:16] VITALS: BP 108/50
[2021-06-19] MEDS ORDERED: WARFARIN SODIUM 2 MG TABLET PO SCH (17:00)
--- NOTE | 2021-06-19 19:06 | NUR ---
TELE/RN CLOSING NOTES PATIENT IS ON BED AWAKE ALERT AND ORIENTED X 1-2. PATIENT IS ON 2L OXYGEN VIA NASAL CANNULA SATURATION 97%. PATIENT IN NO APPARENT RESPIRATORY DISTRESS NOTED. NO COMPLAINED OF PAIN NOTED AT THIS TIME. TELE MONITOR SINUS RHYTHM 64 BPM. SEEN AND EXAMINED BY MD WITH ORDERS MADE AND CARRIED OUT. ALL DUE MEDICATIONS WAS GIVEN. SAFETY PRECAUTIONS WAS IN PLACED. SIDERAILS UP X2. MIDLINE NURSE WILL COME AT 2030. WILL ENDORSED TO USER EXPERIENCE ANALYST FOR PENNIE.
--- NOTE | 2021-06-19 19:30 | NUR ---
RN OPENING NOTE PATIENT IN BED, EYES CLOSED, EASILY AWAKENED. PATIENT IS PRIMARILY AUSTRALIAN SPEAKING, A/O X 1-2. TELE MONITOR READS SB 57 BPM. PATIENT CURRENTLY ON 2L O2 SUPPLEMENTATION, TOLERATING WELL. PATIENT DOES NOT HAVE IV ACCESS AT THIS TIME, MIDLINE TO BE INSERTED TONIGHT. SAFETY MEASURES IN PLACE: BED LOCKED AND IN LOWEST POSITION, CALL LIGHT WITHIN REACH, SIDE RAILS UP, BED ALARM ON. WILL MONITOR PATIENT CLOSELY.
--- NOTE | 2021-06-19 20:00 | NUR ---
RN NOTE DARIEN PURVIS AT BEDSIDE, INSERTING 18 G MIDLINE ON [facility].
[2021-06-19 20:24] VITALS: BP 112/58
[2021-06-19] MEDS: PRAVASTATIN SODIUM 20 MG TABLET PO SCH (21:45)
--- NOTE | 2021-06-19 21:55 | NUR ---
RN NOTE NOTIFIED KG CARPENTER NP OF DECREASED HGB, INSTRUCTED NURSING TO CONTINUE TO HOLD HEPARIN THIS PM. WILL RECHECK H/H IN AM.
--- NOTE | 2021-06-19 22:00 | NUR ---
RN NOTE BS 108 MG/DL, NO INSULIN COVERAGE GIVEN. SNACKS PROVIDED, WILL MONITOR FOR HYPOGLYCEMIA.
[2021-06-20 00:06] VITALS: BP 134/45
[2021-06-20] MEDS: IV NS 0.9% 1,000 ML IV PRN (03:27)
[2021-06-20 04:30] VITALS: BP 148/81
[2021-06-20] MEDS: BLOOD SUGAR DIAGNOSTIC 1 EACH STRIP IN SCH ×4 (06:44→21:23)
--- NOTE | 2021-06-20 06:59 | NUR ---
RN CLOSING NOTE PATIENT IN BED, AWAKE. PATIENT IS PRIMARILY HEBREW SPEAKING, A/O X 1-2. TELE MONITOR READS SR 69 BPM. PATIENT CURRENTLY ON 2L O2 SUPPLEMENTATION, TOLERATING WELL. PATIENT PULLED OUT [facility] MIDLINE, R WRIST 20 G INSERTED BY CHARGE NURSE CODY. BS 97 MG/DL, NO INSULIN COVERAGE GIVEN, PROVIDED JUICE FOR THE PATIENT. SAFETY MEASURES IN PLACE: BED LOCKED AND IN LOWEST POSITION, CALL LIGHT WITHIN REACH, SIDE RAILS UP, BED ALARM ON. ALL NEEDS MET AND ATTENDED, ALL ORDERS CARRIED OUT, WOUND CARE RENDERED. WILL ENDORSE TO DAY SHIFT NURSE FOR PENNIE.
[2021-06-20 07:01] LABS: CALCIUM, SERUM 8.2 mg/dL (8.5-10.1); CARBON DIOXIDE 22 mmol/L (21-32); CHLORIDE 107 mmol/L (98-107); GLUCOSE 106 mg/dL (74-106); POTASSIUM 4.8 mmol/L (3.5-5.1); SODIUM SERUM 138 mmol/L (136-145); UREA NITROGEN, BLOOD 32 mg/dL (7-18)
--- NOTE | 2021-06-20 07:35 | NUR ---
RN OPENING NOTE RECEIVED PATIENT ASLEEP IN BED, EASY TO AROUSE. ALERT AND ORIENTED X 2, SINGAPOREAN SPEAKING. NO SOB. NO S/S OF DISTRESS NOTED. IV ACCESS RWRIST#18 PATENT AND INTACT. PT WITH 2L O2 SUPPLEMENTATION. SAFETY MEASURES IN PLACE: BED LOCKED IN LOW POSITION AND SIDE RAILS UP X 2. CALL LIGHT IS WITHIN REACH. WILL CONTINUE TO MONITOR THROUGHOUT SHIFT.
[2021-06-20 08:12] VITALS: BP 157/64
[2021-06-20] MEDS: PANTOPRAZOLE 40 MG TABLET.DR PO SCH (08:13)
[2021-06-20] MEDS: hydrALAZINE HCL 50 MG TABLET PO SCH ×4 (08:13→21:09)
[2021-06-20] MEDS: METOPROLOL TARTRATE 25 MG TABLET PO SCH ×2 (08:13→16:08)
[2021-06-20] MEDS: CEFTRIAXONE 1 G in IV D5W 50 ML IV SCH (08:21)
[2021-06-20] MEDS: HEPARIN SODIUM, PORCINE 5000 UNITS/1 ML VIAL SQ SCH ×2 (08:21→21:00)
[2021-06-20] MEDS: ALBUTEROL FS 2.5 MG/0.5 ML VIAL.NEB NEB PRN ×2 (09:18→19:54)
[2021-06-20] MEDS: IPRATROPIUM NEB FS 0.5 MG/2.5 ML AMPUL.NEB IH PRN ×2 (09:18→19:54)
[2021-06-20 09:20] LABS: BASOPHILS # (AUTO) 0.1 K/uL (0.0-0.2); BASOPHILS % (AUTO) 0.8 % (0.0-2.0); EOSINOPHILS % (AUTO) 1.5 % (0.0-6.0); HEMATOCRIT 23 % (33-45); HEMOGLOBIN 7.4 g/dL (11.5-14.8); LYMPHOCYTES % (AUTO) 12.8 % (20.0-44.0); MEAN CORPUSCULAR HGB CONC 32 g/dl (31.0-36.0); MEAN CORPUSCULAR VOLUME 81 fL (82-100); MONOCYTES # (AUTO) 0.7 K/uL (0.1-1.30); NEUTROPHILS # (AUTO) 5.7 K/uL (1.8-8.9); NEUTROPHILS % (AUTO) 75.9 % (43.0-81.0); PLATELET COUNT (AUTO) 170 K/uL (150-450); RED BLOOD CELL COUNT(AUTO) 2.88 MIL/uL (4.0-5.2); WHITE BLOOD COUNT (AUTO) 7.6 K/uL (4.3-11.0)
[2021-06-20] MEDS: INSULIN REGULAR, HUMAN 100 UNIT/ML 3 ML VIAL SQ PRN ×3 (11:22→21:10)
[2021-06-20] MEDS ORDERED: VANCOMYCIN 1 GM in IV D5W 250ml IV SCH (16:00)
[2021-06-20 16:08] VITALS: BP_SYST 123; BP_SYST 185; BP_DIAS 109; BP_DIAS 56
--- NOTE | 2021-06-20 16:20 | NUR ---
SS consult pending regarding Hospice. SS will follow up at a later time.
--- NOTE | 2021-06-20 19:01 | NUR ---
RN CLOSING NOTE PATIENT IN BED, AWAKE.ALERT AND ORIENTED X 2, UZBE[place] SPEAKING. NO SOB. NO S/S OF DISTRESS NOTED. IV ACCESS RWRIST#18 PATENT AND INTACT. PT WITH 2L O2 SUPPLEMENTATION. SAFETY MEASURES MAINTAINED: BED LOCKED IN LOW POSITION AND SIDE RAILS UP X 2. CALL LIGHT IS WITHIN REACH. WILL ENDORSE CONTINUITY OF CARE TO ONCOMING SHIFT.
--- NOTE | 2021-06-20 19:17 | NUR ---
RN OPENING NOTE RECEIVED PT AWAKE IN BED, WATCHING TV. A/OX2, ABLE TO VERBALIZE NEEDS. NO C/O PAIN AT THIS TIME. RESPIRATIONS EVEN/UNLABORED. IV SITE R-WRIST #18 INTACT/PATENT/FLUSHES WELL. PT IN NO ACUTE DISTRESS. SAFETY MEASURES IN PLACE, BED IN LOWEST LOCKED POSITION, S/R UPX2, CALL LIGHT WITHIN REACH. WILL CONT TO MONITOR.
--- NOTE | 2021-06-20 19:50 | NUR ---
RN NOTE PT SPEAKING TO HER DAUGHTER OVER THE PHONE. NOTED PT IS SHORT OF BREATH WHILE ON THE PHONE AND PER DAUGHTER PT HAS ASTHMA AND TAKES BREATHING TX AT HOME. REQUESTED FOR PRN BREATHING TX TO RTJUDY. PT ALSO NOTED TO KEEP TAKING OFF HER O2 N/C. REINFORCED INSTRUCTION TO KEEP O2 AND ALSO DAUGHTER SPOKE TO PT TO REMIND HER TO KEEP IT ON. PT MADE COMFORTABLE IN BED WITH HOB ELEVATED. WILL CONT FREQUENT VISUAL CHECK.
[2021-06-20 20:00] VITALS: BP 140/51
[2021-06-20] MEDS ORDERED: MEROPENEM 1 G in IV NS 0.9% 100 ML IV SCH (21:00)
--- NOTE | 2021-06-20 21:02 | NUR ---
RN NOTE PT AWAKE, COMFORTABLE WITH NO SOB NOTED. BREATHING TX EFFECTIVE.
[2021-06-20] MEDS: PRAVASTATIN SODIUM 20 MG TABLET PO SCH (21:08)
--- NOTE | 2021-06-20 21:17 | NUR ---
RN NOTE HEPARIN ON HOLD, HGB STILL LOW AT 7.4. VERIFIED WITH FRANCY JEFFERS, TO CONT TO HOLD HEPARIN.
[2021-06-21] MEDS: IPRATROPIUM NEB FS 0.5 MG/2.5 ML AMPUL.NEB IH PRN ×2 (05:54→14:45)
[2021-06-21] MEDS: ALBUTEROL FS 2.5 MG/0.5 ML VIAL.NEB NEB PRN ×2 (05:54→14:45)
--- NOTE | 2021-06-21 06:12 | NUR ---
RN NOTE PT WITH SOB AFTER BEING CHANGED/REPOSITIONED. RT ADMINISTERED BREATHING TX ORDERED. WILL CONT TO MONITOR.
[2021-06-21] MEDS: INSULIN REGULAR, HUMAN 100 UNIT/ML 3 ML VIAL SQ PRN ×2 (06:22→12:39)
[2021-06-21] MEDS: BLOOD SUGAR DIAGNOSTIC 1 EACH STRIP IN SCH ×3 (06:34→17:30)
--- NOTE | 2021-06-21 06:40 | NUR ---
PT RESTING COMFORTABLY IN BED, NO SOB, RESPIRATIONS EVEN/UNLABORED. BREATHING TX EFFECTIVE. PT IN NO ACUTE DISTRESS. SLEPT WELL DURING THE NIGHT. SAFETY MEASURES MAINTAINED. WILL CONT TO MONITOR AND ENDORSE TO NEXT SHIFT NURSE.
[2021-06-21 07:14] LABS: CALCIUM, SERUM 8.5 mg/dL (8.5-10.1); CARBON DIOXIDE 16 mmol/L (21-32); CHLORIDE 107 mmol/L (98-107); CREATININE 1.9 mg/dL (0.6-1.3); GLUCOSE 132 mg/dL (74-106); POTASSIUM 4.9 mmol/L (3.5-5.1); SODIUM SERUM 137 mmol/L (136-145); UREA NITROGEN, BLOOD 29 mg/dL (7-18)
[2021-06-21 08:00] VITALS: BP 140/61
[2021-06-21] MEDS: hydrALAZINE HCL 50 MG TABLET PO SCH ×3 (08:54→16:17)
[2021-06-21] MEDS: PANTOPRAZOLE 40 MG TABLET.DR PO SCH (08:54)
[2021-06-21] MEDS: METOPROLOL TARTRATE 25 MG TABLET PO SCH ×2 (08:55→16:17)
[2021-06-21] MEDS: HEPARIN SODIUM, PORCINE 5000 UNITS/1 ML VIAL SQ SCH (09:00)
[2021-06-21] MEDS ORDERED: MEROPENEM 500 MG in IV NS 0.9% 100 ML IV SCH (09:00)
[2021-06-21 09:02] LABS: IRON, SERUM 18 ug/dl (50-175); TOTAL IRON BINDING CAPACITY 251 ug/dl (250-450)
--- NOTE | 2021-06-21 09:08 | NUR ---
RN NOTES HEPARIN DOSE HELD TODAY D/T LOW HGB/HCT LEVEL. NO S/SX OF BLEEDING NOTED.
[2021-06-21] MEDS ORDERED: MERO500P IV (10:57)
--- NOTE | 2021-06-21 10:58 | NUR ---
RN NOTES SEEN TODAY BY DR. GREENE W/ ORDERS NOTED. OK FOR PATIENT TO HAVE MIDLINE PATIENT WILL BE D/C'D W/ IV ATB.
--- NOTE | 2021-06-21 14:30 | NUR ---
RN NOTES PICC LINE NURSE AT BEDSIDE; DTR AT BEDSIDE.
--- NOTE | 2021-06-21 14:46 | NUR ---
RN NOTES TOÑO MIDLINE #18 INSERTED, INTACT AND PATENT.
--- NOTE | 2021-06-21 15:59 | NUR ---
SS note: SW will follow up and file complaint with [facility] against Hospice company as it seems family was unaware of what Hospice care was. SW discussed with Gregoria HILL who stated that family have agreed to Home Health services instead. SW will file complaint against hospice company when daughter provides name of Hospice company. Per CM, family does not want Hospice. Dr. Vincent explained Hospice care to family. SERGIO Kinney will set up for pt.
[2021-06-21 16:00] VITALS: BP 155/51
[2021-06-21 16:17] VITALS: BP 155/51
--- NOTE | 2021-06-21 17:36 | NUR ---
RN NOTES PATIENT WAS SEEN BY DR. GREENE TODAY W/ ORDER FOR DISCHARGE TO HOME W/ HOME HEALTH FOLLOW-UP FOR CONTINUATION OF IV ATB THERAPY. DISCHARGE INSTRUCTION AND EDUCATION PROVIDED TO PATIENT AND DAUGHTER AT BEDSIDE. DISCHARGE FORM AND BELONGINGS LIST FORM SIGNED BY DTR AND ALL BELONGINGS ACCOUNTED FOR. IV LINE KEPT INTACT FOR IV ATB THERAPY. NO OPEN WOUND NOTED; PATIENT DID NOT WANT PHOTO OF SACRUM TO BE TAKEN PER REQUEST (PATIENT GOT AGITATED). RESPECTED PATIENT'S REQUEST. BEDSIDE REPORT GIVEN TO EMT, PICKED UP VIA [facility], ACCOMPANIED BY 2 EMT STAFF AND DTR. CHARGE NURSE AND MD AWARE OF DISCHARGE.
== END 2021-06-21 17:45 | disposition hospice, home (50) | DRG 871 ==
LOC: ER 14:17 → TELE 18:02 → MED 06-20 11:47
PROVIDERS: ADMIT Nurse Practitioner Acute Care; ATTEND Nurse Practitioner Acute Care
PROC: 05HB33Z Insertion of Infusion Device into Right Basilic Vein, Percutaneous Approach (ICD-10-PCS; principal; 2021-06-19)
PROC: 05HC33Z Insertion of Infusion Device into Left Basilic Vein, Percutaneous Approach (ICD-10-PCS; 2021-06-21)
DX: A41.9 Sepsis, unspecified organism (principal); N17.0 Acute kidney failure with tubular necrosis; N39.0 Urinary tract infection, site not specified; D68.59 Other primary thrombophilia; E87.1 Hypo-osmolality and hyponatremia; I13.0 Hypertensive heart and chronic kidney disease with heart failure and stage 1 through stage 4 chronic kidney disease, or unspecified chronic kidney disease; Z68.41 Body mass index [BMI] 40.0-44.9, adult; Z16.12 Extended spectrum beta lactamase (ESBL) resistance; D62 Acute posthemorrhagic anemia; E44.0 Moderate protein-calorie malnutrition; E11.40 Type 2 diabetes mellitus with diabetic neuropathy, unspecified; F03.90 Unspecified dementia, unspecified severity, without behavioral disturbance, psychotic disturbance, mood disturbance, and anxiety; M19.90 Unspecified osteoarthritis, unspecified site; N18.30 Chronic kidney disease, stage 3 unspecified; J45.909 Unspecified asthma, uncomplicated; E11.65 Type 2 diabetes mellitus with hyperglycemia; I50.9 Heart failure, unspecified; Z79.01 Long term (current) use of anticoagulants; Z79.84 Long term (current) use of oral hypoglycemic drugs; Z79.51 Long term (current) use of inhaled steroids; Z79.899 Other long term (current) drug therapy; I48.0 Paroxysmal atrial fibrillation; E78.5 Hyperlipidemia, unspecified; E66.01 Morbid (severe) obesity due to excess calories; B96.20 Unspecified Escherichia coli [E. coli] as the cause of diseases classified elsewhere; Z91.14 Patient's other noncompliance with medication regimen; Z86.718 Personal history of other venous thrombosis and embolism; Z74.09 Other reduced mobility; B96.89 Other specified bacterial agents as the cause of diseases classified elsewhere; E86.1 Hypovolemia; E87.5 Hyperkalemia; Z51.5 Encounter for palliative care; E11.21 Type 2 diabetes mellitus with diabetic nephropathy; D63.8 Anemia in other chronic diseases classified elsewhere
CPT/HCPCS: 36415; 71045-TC; 80048-TC; 80061-TC; 80076-TC; 80202-TC; 81001; 82962-TC; 83540-TC; 83605-TC; 83735-TC; 83880; 84100-TC; 84443-TC; 84484-TC; 85025-TC; 85610-TC; 85730-TC; 87040-TC; 87081-TC; 87086-TC; 87186-TC; 93307-TC; 93970-TC; 94799-TC; 97112-TC; 97116-TC; 97530-TC; C9803; G0378; J0692; J0696; J1644; J1815; J2185; J2405; J3370; J7030; J7060

== ENCOUNTER 2024-06-01 21:11 | Inpatient (IN) | payer MEDICARE, OTHER ==
[~2024-06-01] VITALS: Ht 154.9 cm; Wt 85.3 kg
[~2024-06-01 21:11] MED LIST changes: -FLUT1DIS3 IH; +GLIM4TAB37 PO; +HYDR-4077 PO; +INSU200I4 SQ; +MERO500P IV; +POTA10TA PO; +PRAV20TA4 PO; -WARF1TAB86 PO
[2024-06-01 22:19] LABS: BASOPHILS # (AUTO) 0.1 K/uL (0.0-0.2); BASOPHILS % (AUTO) 0.6 % (0.0-2.0); EOSINOPHILS # (AUTO) 0.2 K/uL (0.0-0.7); EOSINOPHILS % (AUTO) 2.4 % (0.0-6.0); HEMATOCRIT 29 % (33-45); LYMPHOCYTES # (AUTO) 1.9 K/uL (0.8-4.8); LYMPHOCYTES % (AUTO) 19.2 % (20.0-44.0); MEAN CORPUSCULAR HEMOGLOBIN 27 PG (26.0-33.0); MEAN CORPUSCULAR HGB CONC 31 g/dl (31.0-36.0); MEAN CORPUSCULAR VOLUME 86 fL (82-100); MONOCYTES # (AUTO) 0.7 K/uL (0.1-1.30); MONOCYTES % (AUTO) 7.4 % (2.0-12.0); NEUTROPHILS # (AUTO) 7.1 K/uL (1.8-8.9); NEUTROPHILS % (AUTO) 70.4 % (43.0-81.0); PLATELET COUNT (AUTO) 452 K/uL (150-450); RED BLOOD CELL COUNT(AUTO) 3.35 MIL/uL (4.0-5.2); RED CELL DISTRIBUTION WIDTH 14.8 % (11.5-15.0)
[2024-06-01 22:33] LABS: ALANINE AMINOTRANSFERASE 12 U/L (12-78); ALBUMIN 2.5 g/dL (3.4-5.0); ALKALINE PHOSPHATASE 68 U/L (46-116); ASPARTATE AMINOTRANSFERASE 9 U/L (15-37); BILIRUBIN,TOTAL 0.2 mg/dL (0.2-1.0); CALCIUM, SERUM 9.2 mg/dL (8.5-10.1); CARBON DIOXIDE 24 mmol/L (21-32); CHLORIDE 103 mmol/L (98-107); CREATININE 2.5 mg/dL (0.6-1.3); GLUCOSE 278 mg/dL (74-106); POTASSIUM 5.2 mmol/L (3.5-5.1); SODIUM SERUM 136 mmol/L (136-145); TOTAL PROTEIN, SERUM 7.3 g/dL (6.4-8.2); UREA NITROGEN, BLOOD 41 mg/dL (7-18)
[2024-06-01 22:47] LABS: APPEARANCE,URINE CLOUDY (CLEAR); BILIRUBIN,URINE NEGATIVE (NEGATIVE); BLOOD, URINE TRACE-INTA Ery/uL (NEGATIVE); COLOR,URINE YELLOW (YELLOW); KETONES,URINE NEGATIVE (NEGATIVE); LEUKOCYTE ESTERASE ,URINE 2+ (NEGATIVE); NITRITE, URINE POSITIVE (NEGATIVE); PH,URINE 5.5 (5.0-8.0); PROTEIN,URINE 1+ mg/dl (NEGATIVE); UGLUCOSE 1+ mg/dL (NEGATIVE); UROBILINOGEN,URINE 0.2 EU/dL (0.2)
[2024-06-01] MEDS ORDERED: OLANZAPINE ZYDIS 5 MG TAB.RAPDIS ONE (23:05)
[2024-06-01] MEDS: OLANZAPINE ZYDIS 5 MG TAB.RAPDIS PO ONE (23:10)
[2024-06-01 23:11] LABS: INR 1.69 (0.91-1.10); PARTIAL THROMBOPLASTIN TIME 35.8 SEC (24.3-34.3); PROTHROMBIN TIME 17.3 SECS (9.2-11.1)
[2024-06-01] MEDS: CEFTRIAXONE 1GM BAG (ER ONLY) 1 GM/50 ML PIGGYBACK IV ONE (23:21)
[2024-06-01] MEDS: FUROSEMIDE 40 MG/4 ML VIAL IV ONE (23:22)
[2024-06-01 23:23] LABS: ADD URINE CULTURE YES; BACTERIA,URINE 3+ /HPF (None Seen)
[2024-06-01 23:24] LABS: MUCUS,URINE Moderate /LPF (None Seen)
[2024-06-02] VITALS: BP 110/54; TEMP 98; O2SAT 98
[2024-06-02] MEDS ORDERED: ONDANSETRON HCL/PF 4 MG/2 ML VIAL IVP PRN (00:30)
[2024-06-02] MEDS ORDERED: Z GUARD REMEDY 4 OZ OINT TP PRN (00:30)
[2024-06-02] MEDS: IV D5/0.45 NACL 1,000 ML IV PRN (03:23)
[2024-06-02] MEDS ORDERED: BLOOD SUGAR DIAGNOSTIC 1 EACH STRIP IN SCH (07:30)
[2024-06-02] MEDS ORDERED: DEXTROSE 50%-WATER 50 ML DISP.SYRIN IV PRN (07:30)
[2024-06-02] MEDS ORDERED: INSULIN REGULAR, HUMAN 100 UNIT/ML 10 ML VIAL SQ SCH (07:30)
[2024-06-02] MEDS ORDERED: INSU200I4 SQ (09:03)
[2024-06-02] MEDS ORDERED: ALBU8.5H8 IH (09:03)
[2024-06-02] MEDS ORDERED: WARF-58 PO (09:03)
[2024-06-02] MEDS ORDERED: METO25TA4 PO (09:03)
[2024-06-02] MEDS ORDERED: LOSA50TA39 PO (09:03)
[2024-06-02] MEDS ORDERED: GLIM4TAB PO (09:03)
[2024-06-02] MEDS: BLOOD SUGAR DIAGNOSTIC 1 EACH STRIP IN SCH (10:38)
[2024-06-02] MEDS: PANTOPRAZOLE 40 MG VIAL IV SCH (10:38)
[2024-06-02] MEDS: CLOPIDOGREL BISULFATE 75 MG TABLET PO SCH (10:38)
[2024-06-02] MEDS: ASPIRIN 81 MG TAB.CHEW PO SCH (10:38)
[2024-06-02 11:09] LABS: THYROID STIMULATING HORMONE 2.67 uIU/mL (0.358-3.74)
[2024-06-02] MEDS ORDERED: ALBUTEROL FS 2.5 MG/3 ML VIAL.NEB NEB PRN (13:30)
[2024-06-02] MEDS: CLOTRIMAZOLE 1% 15 GM TUBE TP SCH (16:20)
[2024-06-02 20:00] VITALS: BP 110/54; TEMP 98; O2SAT 98
[2024-06-02] MEDS: ATORVASTATIN 40 MG TABLET PO SCH (21:31)
[2024-06-02] MEDS: HEPARIN SODIUM, PORCINE 5000 UNITS/1 ML VIAL SQ SCH (21:33)
[2024-06-02] MEDS: CEFTRIAXONE 1 G in IV D5W 50 ML IV SCH (21:36)
[2024-06-02] MEDS: ACETAMINOPHEN 325 MG TABLET PO PRN (22:13)
[2024-06-02] MEDS: INSULIN REGULAR, HUMAN 100 UNIT/ML 3 ML VIAL SQ PRN (23:13)
[2024-06-03] VITALS: BP 110/54; TEMP 98; O2SAT 98
[2024-06-03 04:00] VITALS: BP 120/60; TEMP 98; O2SAT 98
[2024-06-03 06:54] LABS: BASOPHILS % (AUTO) 0.6 % (0.0-2.0); EOSINOPHILS # (AUTO) 0.3 K/uL (0.0-0.7); EOSINOPHILS % (AUTO) 3.9 % (0.0-6.0); HEMATOCRIT 28 % (33-45); HEMOGLOBIN 9.1 g/dL (11.5-14.8); LYMPHOCYTES # (AUTO) 1.8 K/uL (0.8-4.8); LYMPHOCYTES % (AUTO) 23.3 % (20.0-44.0); MEAN CORPUSCULAR HEMOGLOBIN 28 PG (26.0-33.0); MEAN CORPUSCULAR HGB CONC 33 g/dl (31.0-36.0); MEAN CORPUSCULAR VOLUME 85 fL (82-100); MONOCYTES # (AUTO) 0.5 K/uL (0.1-1.30); NEUTROPHILS # (AUTO) 5.1 K/uL (1.8-8.9); NEUTROPHILS % (AUTO) 65.2 % (43.0-81.0); PLATELET COUNT (AUTO) 432 K/uL (150-450); RED BLOOD CELL COUNT(AUTO) 3.29 MIL/uL (4.0-5.2); RED CELL DISTRIBUTION WIDTH 14.4 % (11.5-15.0); WHITE BLOOD COUNT (AUTO) 7.9 K/uL (4.3-11.0)
[2024-06-03 07:02] LABS: ALANINE AMINOTRANSFERASE 12 U/L (12-78); ALBUMIN 2.3 g/dL (3.4-5.0); ALKALINE PHOSPHATASE 63 U/L (46-116); ASPARTATE AMINOTRANSFERASE 10 U/L (15-37); BILIRUBIN,TOTAL 0.2 mg/dL (0.2-1.0); CALCIUM, SERUM 8.5 mg/dL (8.5-10.1); CARBON DIOXIDE 25 mmol/L (21-32); CHLORIDE 104 mmol/L (98-107); CREATININE 2.2 mg/dL (0.6-1.3); GLUCOSE 148 mg/dL (74-106); MAGNESIUM 2.1 mg/dL (1.8-2.4); PHOSPHORUS 3.8 mg/dL (2.5-4.9); POTASSIUM 4.6 mmol/L (3.5-5.1); SODIUM SERUM 137 mmol/L (136-145); TOTAL PROTEIN, SERUM 6.8 g/dL (6.4-8.2); UREA NITROGEN, BLOOD 34 mg/dL (7-18)
[2024-06-03 07:04] LABS: IRON, SERUM 17 ug/dl (50-175); TOTAL IRON BINDING CAPACITY 173 ug/dl (250-450)
[2024-06-03 07:10] LABS: CREATINE KINASE, TOTAL 34 U/L (26-192); FERRITIN 92 ng/mL (8-388)
[2024-06-03 08:00] VITALS: BP 134/63; TEMP 98; O2SAT 98
[2024-06-03 12:00] VITALS: BP 130/66; TEMP 98.2; O2SAT 99
[2024-06-03 16:00] VITALS: BP 134/64; TEMP 98.4; O2SAT 99
[2024-06-03 20:00] VITALS: BP 120/47; TEMP 98; O2SAT 97
[2024-06-04 04:00] VITALS: BP 128/52; TEMP 98.2; O2SAT 100
[2024-06-04 06:09] LABS: PTH, INTACT 65 pg/mL (15-65)
[2024-06-04 07:25] LABS: BASOPHILS # (AUTO) 0.1 K/uL (0.0-0.2); BASOPHILS % (AUTO) 0.5 % (0.0-2.0); EOSINOPHILS # (AUTO) 0.1 K/uL (0.0-0.7); EOSINOPHILS % (AUTO) 0.9 % (0.0-6.0); HEMATOCRIT 29 % (33-45); HEMOGLOBIN 9.1 g/dL (11.5-14.8); LYMPHOCYTES # (AUTO) 1.3 K/uL (0.8-4.8); LYMPHOCYTES % (AUTO) 13.2 % (20.0-44.0); MEAN CORPUSCULAR HEMOGLOBIN 27 PG (26.0-33.0); MEAN CORPUSCULAR HGB CONC 32 g/dl (31.0-36.0); MEAN CORPUSCULAR VOLUME 85 fL (82-100); MONOCYTES # (AUTO) 0.8 K/uL (0.1-1.30); MONOCYTES % (AUTO) 7.5 % (2.0-12.0); NEUTROPHILS # (AUTO) 7.9 K/uL (1.8-8.9); NEUTROPHILS % (AUTO) 77.9 % (43.0-81.0); PLATELET COUNT (AUTO) 470 K/uL (150-450); RED CELL DISTRIBUTION WIDTH 14.3 % (11.5-15.0); WHITE BLOOD COUNT (AUTO) 10.2 K/uL (4.3-11.0)
[2024-06-04 08:00] LABS: CALCIUM, SERUM 8.8 mg/dL (8.5-10.1); CARBON DIOXIDE 26 mmol/L (21-32); CHLORIDE 103 mmol/L (98-107); GLUCOSE 205 mg/dL (74-106); MAGNESIUM 1.9 mg/dL (1.8-2.4); PHOSPHORUS 3.2 mg/dL (2.5-4.9); POTASSIUM 4.9 mmol/L (3.5-5.1); SODIUM SERUM 136 mmol/L (136-145); UREA NITROGEN, BLOOD 29 mg/dL (7-18)
[2024-06-04 09:22] LABS: INR 1.71 (0.91-1.10); PROTHROMBIN TIME 17.5 SECS (9.2-11.1)
[2024-06-04] MEDS: PANTOPRAZOLE 40 MG TABLET.DR PO SCH (09:30)
[2024-06-04 13:08] LABS: FOLIC ACID 6.5 ng/mL (>3.0)
[2024-06-04 13:08] LABS: *SPE A/G RATIO 0.7 (0.7-1.7); *SPE ALBUMIN 2.5 g/dL (2.9-4.4); *SPE ALPHA-1-GLOBULIN 0.3 g/dL (0.0-0.4); *SPE ALPHA-2-GLOBULIN 1.2 g/dL (0.4-1.0); *SPE GLOBULIN, TOTAL 3.7 g/dL (2.2-3.9); *SPE M-SPIKE Not Observed g/dL (Not Observed); *SPE PROTEIN TOTAL 6.2 g/dL (6.0-8.5); *SPEGAMMA GLOBULIN 1.2 g/dL (0.4-1.8)
[2024-06-04 16:00] VITALS: BP 130/53; TEMP 98.6; O2SAT 99
[2024-06-04 20:00] VITALS: BP 137/48; TEMP 97.2; O2SAT 99
[2024-06-05 04:00] VITALS: BP 135/50; TEMP 97.6; O2SAT 99
[2024-06-05 06:43] LABS: ALANINE AMINOTRANSFERASE 6 U/L (12-78); ALBUMIN 2.1 g/dL (3.4-5.0); ALKALINE PHOSPHATASE 66 U/L (46-116); ASPARTATE AMINOTRANSFERASE 9 U/L (15-37); BILIRUBIN,TOTAL 0.3 mg/dL (0.2-1.0); CALCIUM, SERUM 8.3 mg/dL (8.5-10.1); CARBON DIOXIDE 25 mmol/L (21-32); CHLORIDE 104 mmol/L (98-107); CREATININE 1.9 mg/dL (0.6-1.3); GLUCOSE 186 mg/dL (74-106); PHOSPHORUS 2.8 mg/dL (2.5-4.9); POTASSIUM 4.7 mmol/L (3.5-5.1); SODIUM SERUM 136 mmol/L (136-145); UREA NITROGEN, BLOOD 23 mg/dL (7-18)
[2024-06-05 07:58] LABS: BASOPHILS % (AUTO) 0.4 % (0.0-2.0); EOSINOPHILS # (AUTO) 0.2 K/uL (0.0-0.7); EOSINOPHILS % (AUTO) 1.8 % (0.0-6.0); HEMATOCRIT 29 % (33-45); LYMPHOCYTES # (AUTO) 1.6 K/uL (0.8-4.8); LYMPHOCYTES % (AUTO) 17.6 % (20.0-44.0); MEAN CORPUSCULAR HEMOGLOBIN 27 PG (26.0-33.0); MEAN CORPUSCULAR HGB CONC 31 g/dl (31.0-36.0); MEAN CORPUSCULAR VOLUME 85 fL (82-100); MONOCYTES # (AUTO) 0.9 K/uL (0.1-1.30); MONOCYTES % (AUTO) 9.5 % (2.0-12.0); NEUTROPHILS # (AUTO) 6.6 K/uL (1.8-8.9); NEUTROPHILS % (AUTO) 70.7 % (43.0-81.0); PLATELET COUNT (AUTO) 437 K/uL (150-450); RED BLOOD CELL COUNT(AUTO) 3.37 MIL/uL (4.0-5.2); RED CELL DISTRIBUTION WIDTH 14.4 % (11.5-15.0); WHITE BLOOD COUNT (AUTO) 9.3 K/uL (4.3-11.0)
[2024-06-05 08:00] VITALS: BP 147/62; TEMP 98.2; O2SAT 95
[2024-06-05 12:00] VITALS: BP 147/62; TEMP 98.2; O2SAT 95
[2024-06-05 13:50] LABS: INR 1.49 (0.91-1.10); PROTHROMBIN TIME 15.4 SECS (9.2-11.1)
[2024-06-05] MEDS: WARFARIN SODIUM 5 MG TABLET PO SCH (17:48)
[2024-06-05 18:00] VITALS: BP 147/65; TEMP 97.5; O2SAT 98
[2024-06-05 20:00] VITALS: BP 136/76; TEMP 100; O2SAT 95
[2024-06-05] MEDS: SOD FERRIC GLUC 125 MG in IV NS 0.9% 100 ML IV SCH (20:00)
[2024-06-06 04:00] VITALS: BP 136/76; TEMP 100; O2SAT 95
[2024-06-06 07:50] LABS: BASOPHILS % (AUTO) 0.3 % (0.0-2.0); EOSINOPHILS # (AUTO) 0.1 K/uL (0.0-0.7); EOSINOPHILS % (AUTO) 0.9 % (0.0-6.0); HEMATOCRIT 26 % (33-45); HEMOGLOBIN 8.3 g/dL (11.5-14.8); LYMPHOCYTES # (AUTO) 1.3 K/uL (0.8-4.8); LYMPHOCYTES % (AUTO) 13.5 % (20.0-44.0); MEAN CORPUSCULAR HEMOGLOBIN 27 PG (26.0-33.0); MEAN CORPUSCULAR HGB CONC 32 g/dl (31.0-36.0); MEAN CORPUSCULAR VOLUME 85 fL (82-100); MONOCYTES % (AUTO) 9.9 % (2.0-12.0); NEUTROPHILS # (AUTO) 7.4 K/uL (1.8-8.9); NEUTROPHILS % (AUTO) 75.4 % (43.0-81.0); PLATELET COUNT (AUTO) 446 K/uL (150-450); RED CELL DISTRIBUTION WIDTH 14.5 % (11.5-15.0); WHITE BLOOD COUNT (AUTO) 9.8 K/uL (4.3-11.0)
[2024-06-06 07:57] LABS: CALCIUM, SERUM 8.2 mg/dL (8.5-10.1); CARBON DIOXIDE 25 mmol/L (21-32); CHLORIDE 104 mmol/L (98-107); CREATININE 1.8 mg/dL (0.6-1.3); GLUCOSE 220 mg/dL (74-106); PHOSPHORUS 2.5 mg/dL (2.5-4.9); POTASSIUM 4.7 mmol/L (3.5-5.1); SODIUM SERUM 135 mmol/L (136-145); UREA NITROGEN, BLOOD 19 mg/dL (7-18)
[2024-06-06 12:00] VITALS: BP 167/59; TEMP 98.6; O2SAT 95
[2024-06-06] MEDS ORDERED: IV D5/ 0.9% NACL 1,000 ML IV PRN (12:00)
[2024-06-06] MEDS ORDERED: ASPI-1169 PO (12:17)
[2024-06-06] MEDS ORDERED: ATOR40TA PO (12:17)
[2024-06-09 04:10] LABS: VITAMIN B1 THIAMINE,WB 86.3 nmol/L (66.5-200.0)
[2024-06-09 22:08] LABS: *PTT-LA MIX 47.8 sec (0.0-40.5); *THROMBIN TIME 15.8 sec (0.0-23.0); *dPT CONFIRM RATIO 0.93 Ratio (0.00-1.34)
== END 2024-06-06 14:55 | DRG 64 ==
LOC: ER 21:12 → TRANSITION 06-02 01:23 → TELE1 06-02 04:46 → MEDSG1 06-03 09:55
PROVIDERS: ADMIT Nurse Practitioner Family; ATTEND Student in an Organized Health Care Education/Training Program
DX: I63.9 Cerebral infarction, unspecified (principal); G93.41 Metabolic encephalopathy; E44.1 Mild protein-calorie malnutrition; I13.0 Hypertensive heart and chronic kidney disease with heart failure and stage 1 through stage 4 chronic kidney disease, or unspecified chronic kidney disease; N39.0 Urinary tract infection, site not specified; N17.9 Acute kidney failure, unspecified; E46 Unspecified protein-calorie malnutrition; D62 Acute posthemorrhagic anemia; N18.9 Chronic kidney disease, unspecified; E11.22 Type 2 diabetes mellitus with diabetic chronic kidney disease; I50.9 Heart failure, unspecified; R13.10 Dysphagia, unspecified; R29.708 NIHSS score 8; Z86.73 Personal history of transient ischemic attack (TIA), and cerebral infarction without residual deficits; I48.91 Unspecified atrial fibrillation; Z79.4 Long term (current) use of insulin; Z79.84 Long term (current) use of oral hypoglycemic drugs; Z79.899 Other long term (current) drug therapy; Z79.51 Long term (current) use of inhaled steroids; B96.20 Unspecified Escherichia coli [E. coli] as the cause of diseases classified elsewhere; D63.1 Anemia in chronic kidney disease; E87.5 Hyperkalemia; E88.09 Other disorders of plasma-protein metabolism, not elsewhere classified; F03.90 Unspecified dementia, unspecified severity, without behavioral disturbance, psychotic disturbance, mood disturbance, and anxiety; I25.10 Atherosclerotic heart disease of native coronary artery without angina pectoris; E78.5 Hyperlipidemia, unspecified; J45.909 Unspecified asthma, uncomplicated; M89.8X9 Other specified disorders of bone, unspecified site; E66.9 Obesity, unspecified; Z68.35 Body mass index [BMI] 35.0-35.9, adult; Z74.01 Bed confinement status; Z79.01 Long term (current) use of anticoagulants; Z86.718 Personal history of other venous thrombosis and embolism; R29.810 Facial weakness; Z91.199 Patient's noncompliance with other medical treatment and regimen due to unspecified reason; D63.8 Anemia in other chronic diseases classified elsewhere; N25.0 Renal osteodystrophy
CPT/HCPCS: 36415; 70450-TC; 71045-TC; 80048-TC; 80053-TC; 80076-TC; 81001; 82378; 82550-TC; 82607-TC; 82728-TC; 82962-TC; 83540-TC; 83735-TC; 83921; 83970; 84100-TC; 84155; 84165; 84425; 84443-TC; 84484-TC; 85025-TC; 85610-TC; 85613; 85670; 85705; 85730-TC; 85732; 86147; 87040-TC; 87086-TC; 92507-TC; 92521; 92526; 92611-TC; 93970-TC; 97110-TC; 97112-TC; 97530-TC; A4223; G0378; J0696; J1644; J1815; J1940; J2470; J2916; J3490; J7030; J7060